=== PATIENT | male | born 1975 | race Caucasian/White ===

== ENCOUNTER 2021-02-15 08:49 | Emergency (ER) | payer MEDICAID, OTHER ==
[~2021-02-15 08:49] MED LIST: diphenhydrAMINE 50 MG/ML SDV IM ONE
[2021-02-15] MEDS ORDERED: methylPREDNISolone Sodium Succinate 125 MG/2 ML SDV IM ONE (08:50)
[2021-02-15] MEDS ORDERED: Famotidine 20 MG Tab PO ONE (08:50)
--- NOTE | 2021-02-15 10:10 | EDM.PDOC ---
ED HPI GENERAL MEDICAL PROBLEM - General Chief Complaint: General Stated Complaint: Hornet stings Time Seen by Provider: 02/15/21 10:00 Source of Information: Reports: Patient History Limitations: Reports: No Limitations - History of Present Illness INITIAL COMMENTS - FREE TEXT/NARRATIVE: Patient received multiple stings yesterday from what he thinks were hornets when he was helping out a friend around a house. Has swelling/itching/irritation. Mild sensation SOB. No swelling of lips/tongue/throat. No history of being stung in past. - Related Data Allergies Allergy/AdvReac Type Severity Reaction Status Date / Time No Known Drug Allergies Allergy Other Verified 02/15/21 09:06 Home Meds: Home Meds Naproxen Sodium [Aleve] 2 tab PO BID PRN 02/15/21 [History] predniSONE 20 mg PO ASDIRECTED #6 tab 02/15/21 [Rx] Past Medical History Other Gastrointestinal History: intususception Genitourinary History: Reports: Acute Renal Failure - Past Surgical History Male Surgical History: Reports: Renal Calculus Social & Family History - Living Situation & Occupation Living situation: Reports: Single, Alone Occupation: Employed ED ROS GENERAL - Review of Systems Review Of Systems: Comprehensive ROS is negative, except as noted in HPI. ED EXAM, GENERAL - Physical Exam Exam: See Below Exam Limited By: No Limitations General Appearance: Alert, WD/WN, No Apparent Distress Eye Exam: Bilateral Eye: EOMI, PERRL Ears: Hearing Grossly Normal Nose: No: Nasal Deformity, Nasal Swelling, Nasal Drainage Throat/Mouth: Normal Lips, Normal Voice, No Airway Compromise Head: Facial Swelling (left cheek) Neck: Supple, Non-Tender, Full Range of Motion Respiratory/Chest: No Respiratory Distress, Lungs Clear, Normal Breath Sounds, No Accessory Muscle Use Cardiovascular: Regular Rate, Rhythm, No Murmur GI/Abdominal: Soft Back Exam: No: Muscle Spasm Extremities: Normal Range of Motion, Normal Capillary Refill Neurological: Alert, Oriented, Normal Cognition, Normal Gait, No Motor/Sensory Deficits Psychiatric: Normal Affect, Normal Mood Skin Exam: Warm, Dry, Other (Scattered areas of redness/mild swelling noted face/limbs). No: Ecchymosis Course - Orders/Labs/Meds Meds: Medications Discontinued Medications Generic Name Dose Route Start Last Admin Trade Name Freq PRN Reason Stop Dose Admin Diphenhydramine HCl 50 mg 02/15/21 08:49 02/15/21 09:00 Diphenhydramine 50 Mg/Ml Sdv IM 02/15/21 08:50 50 mg ONETIME ONE Administration Famotidine 20 mg 02/15/21 08:50 02/15/21 09:00 Famotidine 20 Mg Tab PO 02/15/21 08:51 20 mg ONETIME ONE Administration Methylprednisolone Sodium Succinate 125 mg 02/15/21 08:50 02/15/21 09:00 Methylprednisolone Sodium Succinate 125 Mg/2 Ml Sdv IM 02/15/21 08:51 125 mg ONETIME ONE Administration - Re-Assessments/Exams Free Text/Narrative Re-Assessment/Exam: 02/15/21 10:13 Multiple hornet stings with associated swelling/itching/discomfort. No evidence of anaphylaxis. VSS. Patient received IM Benadryl and Solumedrol. Observed for over an hour. Feels a bit improved. To be continued on daily antihistamines for next 7-10 days. Normal anticipate course of swelling/itching reviewed with patient. Precautions reviewed. To return to ER if any worsening noted/especially if it affects breathing/airway. Rx for Prednisone given to patient to be filled if increased discomfort noted as SoluMedrol wears off. Departure - Departure Time of Disposition: 10:05 Disposition: Home, Self-Care 01 Condition: Good Clinical Impression: Sting from hornet, wasp, or bee Qualifiers: Encounter type: initial encounter Injury intent: accidental or unintentional Qualified Code(s): T63.451A - Toxic effect of venom of hornets, accidental (unintentional), initial encounter - Discharge Information *PRESCRIPTION DRUG MONITORING PROGRAM REVIEWED*: Not Applicable *COPY OF PRESCRIPTION DRUG MONITORING REPORT IN PATIENT MARTHA: Not Applicable Prescriptions: predniSONE 20 mg PO ASDIRECTED #6 tab Instructions: Bee, Wasp, or Hornet Sting, Adult Referrals: PCP,None [Primary Care Provider] - Forms: ED Department Discharge Additional Instructions: Take 1-2 tabs Benadryl every 6 hours for next 24 hours. Then go to "as needed" if swelling/itching are still bothersome. superintendent transmission Pepcid and take one tab a day for 7-10 days. superintendent transmission either Keerthi or Claritin and take 1 tab daily for 7-10 days. These also will help with the reaction to the stings. Ice swollen areas to help with irritation and swelling. Follow up for recheck if you have sudden worsening problems/increased shortness of breath.
[2021-02-15 13:21] VITALS: BP 128/78; PULSE 82
== END 2021-02-15 10:33 | disposition home or self-care (01) ==
LOC: SUPCPDRO 08:49 → LL.ED 08:49
DX: T63.451A Toxic effect of venom of hornets, accidental (unintentional), initial encounter (principal)
CPT/HCPCS: 96372; 99282; 99283; A9270-GY; J1200; J2930

== ENCOUNTER 2021-10-25 13:27 | Emergency (ER) | payer BC ==
[2021-10-25 13:35] VITALS: BP 131/87; PULSE 92
[2021-10-25] MEDS: Sodium Chloride 0.9% 10 ML Syringe FLUSH PRN (14:39)
[2021-10-25] MEDS: Morphine 2 MG/ML SYRINGE IVPUSH ONE (14:39)
[2021-10-25 15:04] LABS: ANION GAP 9.7 meq/L (7-15); CHLORIDE,CL 105 mmol/L (98-107); SODIUM,NA 140 mmol/L (136-145)
[2021-10-25] MEDS: Ketorolac 30 MG/ML SDV IVPUSH ONE (15:16)
== END 2021-10-25 15:45 | disposition home or self-care (01) ==
LOC: LL.ED 13:27
DX: M51.16 Intervertebral disc disorders with radiculopathy, lumbar region (principal); M62.830 Muscle spasm of back
CPT/HCPCS: 36415; 72110; 80053; 85025; 86140; 96374; 96375; 99284-25; J1885; J2270; J3490

== ENCOUNTER 2021-11-04 12:43 | Emergency (ER) | payer BC ==
[2021-11-04 12:57] VITALS: BP 145/81; PULSE 92
[2021-11-04] MEDS ORDERED: HYDROmorphone 1 MG/ML Syringe IM ONE (13:25)
[2021-11-04] MEDS ORDERED: Ketorolac 30 MG/ML SDV IM ONE (13:26)
[2021-11-04] MEDS ORDERED: methylPREDNISolone Sodium Succinate 125 MG/2 ML SDV IM ONE (13:26)
== END 2021-11-04 14:10 | disposition home or self-care (01) ==
LOC: LL.ED 12:43
DX: M51.16 Intervertebral disc disorders with radiculopathy, lumbar region (principal)
CPT/HCPCS: 96372; 99283; 99284; J1170; J1885; J2930

== ENCOUNTER 2022-12-27 10:04 | Day surgery (SDC) | payer BC, MEDICAID ==
[~2022-12-27 10:04] MED LIST changes: +Midazolam 1 MG/ML 2 ML SDV ONE; +Propofol 200 MG/20 ML SDV ONE; +Sodium Chloride 0.9% 10 ML Syringe FLUSH PRN; -diphenhydrAMINE 50 MG/ML SDV IM ONE
[2022-12-27] MEDS: Lactated Ringers 1,000 ML IV SCH (10:47)
[2022-12-27] MEDS ORDERED: Glycopyrrolate 0.2 MG/ML SDV IVPUSH ONE (11:32)
[2022-12-27] MEDS ORDERED: Midazolam 1 MG/ML 2 ML SDV ONE (11:33)
[2022-12-27 12:40] VITALS: BP 101/62; PULSE 87
== END 2022-12-27 13:10 | disposition home or self-care (01) ==
LOC: LL.SDS 10:04
PROVIDERS: ATTEND Surgery
DX: K21.00 Gastro-esophageal reflux disease with esophagitis, without bleeding (principal); K29.00 Acute gastritis without bleeding; F31.9 Bipolar disorder, unspecified; F43.10 Post-traumatic stress disorder, unspecified; F33.1 Major depressive disorder, recurrent, moderate; F41.9 Anxiety disorder, unspecified; Z79.899 Other long term (current) drug therapy; Z98.890 Other specified postprocedural states
CPT/HCPCS: 00813; J2250; J2704; J3490; J7120

== ENCOUNTER 2023-05-18 11:19 | Emergency (ER) | payer MEDICAID, BC, OTHER ==
[2023-05-18] MEDS: Ketorolac 30 MG/ML SDV IM ONE (11:49)
[2023-05-18] MEDS: Orphenadrine 60 MG/2 ML Inj IM ONE (11:50)
[2023-05-18] MEDS: Take Home: Acetaminophen/HYDROcodone 325-5 MG, 5 Tab Pack PO ONE (13:13)
[2023-05-18 13:20] VITALS: BP 94/76; PULSE 103
== END 2023-05-18 13:19 | disposition home or self-care (01) ==
LOC: LL.ED 11:19
DX: M43.6 Torticollis (principal); Z79.899 Other long term (current) drug therapy
CPT/HCPCS: 96372; 99283; 99284; A9270-GY; J1885; J2360

== ENCOUNTER 2023-06-19 16:06 | Emergency (ER) | payer BC, MEDICAID ==
[2023-06-19] MEDS ORDERED: Ondansetron 4 MG/2 ML SDV ONE (16:19)
[2023-06-19] MEDS ORDERED: HYDROmorphone 1 MG/ML Syringe ONE (16:19)
[2023-06-19] MEDS ORDERED: Ondansetron 4 MG/2 ML SDV IVPUSH ONE (16:19)
[2023-06-19] MEDS ORDERED: HYDROmorphone 1 MG/ML Syringe IVPUSH ONE (16:19)
[2023-06-19] MEDS ORDERED: Sodium Chloride 0.9% 10 ML Syringe FLUSH PRN (16:26)
[2023-06-19] MEDS ORDERED: Diphtheria,Pertussis(Acell),Tetanus Vaccine 0.5 ML Syringe IM ONE (16:27)
[2023-06-19 16:45] LABS: BASOPHILS ABSOLUTE AUTO 0.01 K/uL (0.00-0.20); BASOPHILS PERCENT AUTO 0.1 % (0.0-2.0); EOSINOPHILS ABSOLUTE AUTO 0.14 K/uL (0.00-0.50); EOSINOPHILS PERCENT AUTO 1.8 % (0.0-5.0); HEMATOCRIT 36.4 % (39.0-49.0); HEMOGLOBIN 11.6 g/dL (13.1-16.8); LYMPHOCYTES ABSOLUTE AUTO 3.16 K/uL (0.50-3.50); LYMPHOCYTES PERCENT AUTO 40.5 % (10.0-50.0); MEAN CORPUSCULAR HEMOGLOBIN 26.6 pg (28.2-33.3); MEAN CORPUSCULAR HGB CONC 31.9 g/dL (31.7-36.0); MEAN CORPUSCULAR VOLUME 83.5 fL (84.0-98.0); MONOCYTES PERCENT AUTO 7.7 % (2.0-14.0); NEUTROPHILS PERCENT AUTO 49.9 % (45.0-80.0); PLATELET COUNT,PLT 346 K/uL (150-350); RED BLOOD CELL COUNT 4.36 M/uL (4.33-5.41); RED CELL DISTRIBUTION WIDTH 14.4 % (11.2-14.1); WHITE BLOOD CELL COUNT,WBC 7.8 K/uL (4.0-10.2)
[2023-06-19 16:58] LABS: ALANINE AMINOTRANSFERASE,ALT 47 U/L (12-78); ALBUMIN 3.4 g/dL (3.4-5.0); ALKALINE PHOSPHATASE 76 IU/L (46-116); ANION GAP 7.7 meq/L (7-15); ASPARTATE AMNIOTRANSFERASE,AST 36 U/L (15-37); BILIRUBIN TOTAL 0.3 mg/dL (0.2-1.0); BLOOD UREA NITROGEN,BUN 24 mg/dL (7-18); CALCIUM 8.9 mg/dL (8.5-10.1); CARBON DIOXIDE,CO2 29.3 mmol/L (21.0-32.0); CHLORIDE,CL 103 mmol/L (98-107); ESTIMATED GFR 67 mL/min (>=60); GLUCOSE RANDOM 117 mg/dL (70-99); POTASSIUM,K 4.3 mmol/L (3.5-5.1); PROTEIN TOTAL,TP 6.7 g/dL (6.4-8.2); SODIUM,NA 140 mmol/L (136-145)
[2023-06-19] MEDS ORDERED: Bacitracin Oint 1 GM U/D Packet TOP ONE (16:59)
[2023-06-19 17:05] LABS: PROTHROMBIN TIME 9.6 SEC (9.0-11.1)
[2023-06-19 17:28] LABS: PTT,PARTIAL THROMBOPLSTIN TIME 23.6 SEC (23.6-29.8)
[2023-06-19] MEDS ORDERED: Acetaminophen 500 MG Tab PO ONE (17:44)
== END 2023-06-19 18:36 | disposition home or self-care (01) ==
LOC: LL.ED 16:06
DX: S40.011A Contusion of right shoulder, initial encounter (principal); S00.81XA Abrasion of other part of head, initial encounter; W01.0XXA Fall on same level from slipping, tripping and stumbling without subsequent striking against object, initial encounter
CPT/HCPCS: 36415; 70450; 72125; 73200-RT; 80053; 85025; 85610; 85730; 90471; 90715; 96374; 96375; 99284-25; A9270-GY; J1170; J2405; J3490